=== PATIENT | female | born 1980 | race African-American/Black ===

== ENCOUNTER 2020-01-06 21:10 | Emergency (ER) | payer OTHER ==
[2020-01-06] MEDS ORDERED: TETRACAINE 0.5% HCL 0.6ML DROPPER.BOTTLE OS ONE (21:13)
[2020-01-06] MEDS ORDERED: FLUORESCEIN NA 1 EA STRIP OS ONE (21:13)
--- NOTE | 2020-01-06 21:13 | PDOC ---
Rapid Medical Evaluation Time Seen by Provider: 01/06/20 21:11 Medical Evaluation: Allergies Allergy/AdvReac Type Severity Reaction Status Date / Time No Known Allergies Allergy Verified 10/29/19 14:41 01/06/20 21:11 I have performed a brief in-person evaluation of this patient. CC: left eye FB sensation; unknown last td PE: injected sclera of left eye. No discharge Orders: tetracaine, fluorescein Patient will proceed to ED for further evaluation. 01/06/20 21:12 Discharge Disposition - Diagnosis Irritation of left eye - Referrals - Patient Instructions - Post Discharge Activity
[2020-01-06 21:23] VITALS: BP 125/65; PULSE 64; TEMP 97.8; BMI 33.6
[2020-01-06] MEDS ORDERED: TETRACAINE 0.5% OPHTH SOLN 2 ML BOTTLE ONE (21:41)
[2020-01-06] MEDS ORDERED: FLUORESCEIN NA 1 EA STRIP ONE (21:41)
[2020-01-06] MEDS ORDERED: ERYTHROMYCIN 0.5% OPHTHALMIC OINTMENT 3.5 GM TUBE OS ONE (21:53)
--- NOTE | 2020-01-06 21:55 | PDOC ---
History of Present Illness - General Chief Complaint: Eye Problem Stated Complaint: LT EYE PAIN Time Seen by Provider: 01/06/20 21:11 History Source: Patient Exam Limitations: No Limitations - History of Present Illness Initial Comments: 01/06/20 21:59 HISTORY OF PRESENT ILLNESS: 39-year-old woman who presents emergency department for evaluation of irritation to the right eye which he describes as a foreign body sensation. Patient does not remember anything going into her eye reports the feeling is slightly itchy. Patient reports is worse under the upper eyelid towards the inner canthus. She denies any blurry vision or dizziness. Patient does not wear contact lenses. No recent travel or sick contacts. PAST MEDICAL HISTORY: Denies past medical history SURGICAL HISTORY: Denies ALLERGIES: No known drug allergies REVIEW OF SYSTEMS General/Constitutional: Denies fever or chills. Denies weakness, weight change. HEENT: See HPI Cardiovascular: Denies chest pain or shortness of breath. Respiratory: Denies cough, wheezing, or hemoptysis. Gastrointestinal: Denies nausea, vomiting, diarrhea or constipation. Denies rectal bleeding. Genitourinary: Denies dysuria, frequency, or change in urination. Musculoskeletal: Denies joint or muscle swelling or pain. Denies neck or back pain. Skin and breasts: Denies rash or easy bruising. Neurologic: Denies headache, vertigo, loss of consciousness, or loss of sensation. Psychiatric: Denies depression or anxiety. Endocrine: Denies increased thirst. Denies abnormal weight change. Hematologic/Lymphatic: Denies anemia, easy bleeding, or history of blood clots. Allergic/Immunologic: Denies hives or skin allergy. Denies latex allergy. PHYSICAL EXAM General Appearance: Well-appearing, appropriately dressed. No apparent d istress, no intoxication. HEENT: EOMI, PERRLA, normal ENT inspection, normal voice, TMs normal, pharynx normal. No conjunctival pallor. No photophobia, scleral icterus. EYE EXAMINATION: Visual acuity: 20/20 in the left eye, 20/20 in the right eye, near, uncorrected The lid and lashes are normal. Extraocular movements are intact. The conjunctiva is injected without discharge. The corneal surface is normal post tetracaine and fluorescein. There is no corneal abrasion or foreign body. There is no abnormal fluorescein uptake. The pupils are equal, round and reactive to light. Neurologic: pillar man II-XII intact. Fully oriented, alert. Appropriate mood/affect. Motor strength 5/5. No appreciable EOM palsy, facial droop or sensory deficit. Past History - Medical History Allergies/Adverse Reactions: Allergies Allergy/AdvReac Type Severity Reaction Status Date / Time No Known Allergies Allergy Verified 10/29/19 14:41 Home Medications: Ambulatory Orders Naproxen 500 mg PO BID PRN #20 tablet 10/29/19 Erythromycin 0.5% Eye Ointment [Erythromycin 0.5% Eye Ointment -] 1 applic OS TID #1 tube 01/06/20 COPD: No - Immunization History Immunization Up to Date: No - Psycho-Social/Smoking History Smoking History: Never smoked Have you smoked in the past 12 months: No - Substance Abuse Hx (Audit-C & DAST Scrn) How often the patient has a drink containing alcohol: Never Score: In Men: 4 or > Positive; In Women: 3 or > Positive: 0 Screen Result (Pos requires Nsg. Audit-10AR): Negative In the last yr the pt used illegal drug/Rx for NonMed reason: No Score: Yes response is considered Positive: 0 Screen Result (Positive result requires Nsg. DAST-10): Negative *Physical Exam - Vital Signs Last Vital Signs Temp Pulse Resp BP Pulse Ox 97.8 F 64 19 125/65 100 01/06/20 21:16 01/06/20 21:16 01/06/20 21:16 01/06/20 21:16 01/06/20 21:16 Medical Decision Making - Medical Decision Making 01/06/20 21:58 A/P: 39-year-old woman with left eye irritation for 1 day EYE EXAMINATION: Visual acuity: 20/20 in the left eye, 20/20 in the right eye, near, uncorrected The lid and lashes are normal. Extraocular movements are intact. The conjunctiva is injected without discharge. The corneal surface is normal post tetracaine and fluorescein. There is no corneal abrasion or foreign body. There is no abnormal fluorescein uptake. The pupils are equal, round and reactive to light. Erythromycin ointment Discharge home with ophthalmology follow-up and prescription for erythromycin Discharge - Discharge Information Problems reviewed: Yes Clinical Impression/Diagnosis: Irritation of left eye Condition: Stable Disposition: HOME - Admission No - Additional Discharge Information Prescriptions: Erythromycin 0.5% Eye Ointment [Erythromycin 0.5% Eye Ointment -] 1 applic OS TID #1 tube - Follow up/Referral Referrals: Brianda Woo MD [Primary Care Provider] - Robb Perez MD [Staff Physician] - - Patient Discharge Instructions Additional Instructions: Rest, avoid rubbing eyes Wash hands frequently Wash hands, use ointment as directed, wash hands after use Do not share eye ointment with other person to may become infected as this will infect them Erthromycin ointment to affected eye 4 times a day for 5 days Avoid contact with others until redness and discharge is gone from eyes. Followup with ophthalmology or private physician as needed - Post Discharge Activity
[2020-01-06] MEDS ORDERED: ERYTHROMYCIN 0.5% OPHTHALMIC OINTMENT 3.5 GM TUBE ONE (22:00)
== END 2020-01-06 22:03 | disposition home or self-care (01) ==
LOC: JER 21:10 → JERFT 21:10
DX: H57.12 Ocular pain, left eye (principal)
CPT/HCPCS: 99283-25

== ENCOUNTER 2020-07-06 17:03 | Emergency (ER) | payer OTHER ==
[2020-07-06 17:42] VITALS: BMI 26.5
[2020-07-06 20:40] LABS: BASO % 0.6 % (0-2.0); EOS % 0.8 % (0-4.5); HEMOGLOBIN 11.2 GM/dL (10.7-15.3); MCH 27.9 pg (25.7-33.7); MCHC 31.8 g/dl (32.0-36.0); MEAN CELL VOLUME 87.7 fl (80-96); MONO % 7.5 % (3.8-10.2); NEUT % 63.1 % (42.8-82.8); PLATELET COUNT 272 K/MM3 (134-434); WHITE BLOOD COUNT 6.9 K/mm3 (4.0-10.0)
[2020-07-06 20:56] LABS: POTASSIUM 3.7 mmol/L (3.5-5.1)
[2020-07-06 21:00] LABS: BLOOD UREA NITROGEN 8.8 mg/dL (7-18); CALCIUM 9.4 mg/dL (8.5-10.1)
[2020-07-06 21:04] LABS: CREATININE 0.8 mg/dL (0.55-1.3)
[2020-07-06 21:05] LABS: BILIRUBIN,TOTAL 0.4 mg/dL (0.2-1); TOT PROT 7.7 g/dl (6.4-8.2)
[2020-07-06 21:26] LABS: HCG,QUALITATIVE URINE Negative
[2020-07-06 21:32] LABS: URINE APPEARANCE Clear; URINE BILIRUBIN Negative (NEGATIVE); URINE COLOR Yellow; URINE GLUCOSE (UA) Negative (NEGATIVE); URINE KETONE Negative (NEGATIVE); URINE NITRITE Negative (NEGATIVE); URINE PROTEIN Negative (NEGATIVE); URINE UROBILINOGEN 0.2 mg/dL (0.2-1.0)
[2020-07-06] MEDS ORDERED: KETOROLAC TROMETHAMINE 15 MG/ML VIAL IVPUSH ONE (21:46)
[2020-07-06] MEDS ORDERED: KETOROLAC TROMETHAMINE 15 MG/ML VIAL ONE (22:07)
[2020-07-06 22:18] VITALS: BP 122/82; PULSE 80
[2020-07-06 22:22] LABS: URINE LEUK ESTERASE Trace (NEGATIVE)
[2020-07-06 23:05] LABS: EPI CELLS 11.4 /uL (0-25.1); HYALINE CASTS 1.02 /uL (0-3.1); URINE BACTERIA 619.4 /uL (0-1359); URINE RBC 6.8 /uL (0-23.9); URINE WBC 18.7 /uL (0-25.8)
== END 2020-07-06 22:18 | disposition home or self-care (01) ==
LOC: JER 17:03
PROC: 3E0333Z Introduction of Anti-inflammatory into Peripheral Vein, Percutaneous Approach (ICD-10-PCS; principal; 2020-07-06)
DX: N83.292 Other ovarian cyst, left side (principal)
CPT/HCPCS: 36415; 76830-TC; 80053; 81003; 83690; 84703; 85025; 87086; 87186; 87491; 87591; 99284-25

== ENCOUNTER 2022-11-23 10:06 | Emergency (ER) | payer OTHER ==
[2022-11-23 10:12] VITALS: BP 116/65; PULSE 74; RESP 18; TEMP 98.4; BMI 53.1
[2022-11-23] MEDS ORDERED: FAMOTIDINE 20 MG TABLET PO ONE (10:40)
[2022-11-23] MEDS ORDERED: MAG HYDROX/AL HYDROX/SIMETH -MYLANTA- ORAL SUSPENSION PO ONE (10:40)
[2022-11-23] MEDS ORDERED: FAMOTIDINE 20 MG TABLET ONE (10:43)
[2022-11-23] MEDS ORDERED: MAG HYDROX/AL HYDROX/SIMETH 30 ML UNIT-DOSE CUP ONE (10:44)
[2022-11-23 11:39] LABS: CHLORIDE 108 mmol/L (98-107); POTASSIUM 4.4 mmol/L (3.5-5.1); SODIUM 137 mmol/L (136-145)
[2022-11-23 11:40] LABS: CALCIUM 9.4 mg/dL (8.5-10.1)
[2022-11-23 11:41] LABS: ANION GAP 5 MMOL/L (8-16); BLOOD UREA NITROGEN 17.4 mg/dL (7-18); CO2 24 mmol/L (21-32); GLUCOSE,RANDOM 97 mg/dL (74-106); LIPASE 101 U/L (73-393)
[2022-11-23 11:44] LABS: CREATININE 0.7 mg/dL (0.55-1.3)
[2022-11-23 12:01] LABS: BASO % 0.5 % (0-2.0); EOS % 0.8 % (0-4.5); HEMATOCRIT 30.5 % (32.4-45.2); HEMOGLOBIN 9.6 GM/dL (10.7-15.3); MCH 24.8 pg (25.7-33.7); MCHC 31.5 g/dl (32.0-36.0); MEAN CELL VOLUME 78.9 fl (80-96); NEUT % 53.7 % (42.8-82.8); PLATELET COUNT 255 10^3/uL (134-434); RBC 3.87 M/mm3 (3.60-5.2); RDW 17.3 % (11.6-15.6); WHITE BLOOD COUNT 6.3 K/mm3 (4.0-10.0)
== END 2022-11-23 12:31 | disposition home or self-care (01) ==
LOC: JER 10:06
DX: K29.70 Gastritis, unspecified, without bleeding (principal); R10.12 Left upper quadrant pain
CPT/HCPCS: 36415; 80048; 82550; 82553; 83690; 84484; 85025; 93005; 93010; 99284-25